=== PATIENT | male | born 1985 | race Caucasian/White ===

== ENCOUNTER 2021-01-20 00:48 | Emergency (ER) | payer BC ==
[~2021-01-20] VITALS: Ht 185.4 cm; Wt 139.7 kg
[2021-01-20] MEDS ORDERED: BUPROPION HCL150 MG PO (00:58)
[2021-01-20] MEDS ORDERED: AMPHETAMINE SAL10 MG PO (00:59)
[2021-01-20] MEDS ORDERED: DICLOFENAC SODI75 MG PO (01:00)
[2021-01-20 02:34] LABS: ABSOLUTE NEUTROPHILS 5.9 thou/uL (1.4-8.2); BASOPHILS 0.4 % (0.0-2.0); HEMATOCRIT 42.7 % (42.0-52.0); HEMOGLOBIN 14.4 gm/dL (14.0-18.0); LYMPHOCYTES 26.6 % (24.0-44.0); MCH 28.1 pg (26.0-34.0); MCHC 33.7 g/dL (28.0-37.0); MCV 83.1 fL (80.0-100.0); MONOCYTES 8.4 % (1.0-8.0); PLATELET COUNT 235 thou/uL (150-400); POLYS 62.6 % (36.0-66.0); RBC 5.14 mil/uL (4.50-6.00); RDW 14.3 % (10.5-14.5); WBC 9.4 thou/uL (4.0-11.0)
[2021-01-20 02:56] LABS: CREATININE 0.8 mg/dL (0.7-1.3); POTASSIUM 3.7 mmol/L (3.5-5.1)
[2021-01-20 03:08] LABS: ALBUMIN 3.7 g/dL (3.4-5.0); TOTAL BILIRUBIN 0.6 mg/dL (0.2-1.0); TOTAL PROTEIN 8.6 g/dL (6.4-8.2)
[2021-01-20] MEDS ORDERED: FLEXERIL PO (03:52)
[2021-01-20 04:12] VITALS: BP 168/98
--- NOTE | 2021-01-20 07:28 | EKG ---
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
== END 2021-01-20 04:16 | disposition home or self-care (01) ==
LOC: ER 00:48
PROVIDERS: Emergency Medicine
DX: M54.6 Pain in thoracic spine (principal); Z79.899 Other long term (current) drug therapy

== ENCOUNTER 2021-01-25 02:38 | Emergency (ER) | payer BC ==
[~2021-01-25] VITALS: Ht 185.4 cm; Wt 139.7 kg
[~2021-01-25 02:38] MED LIST: AMPHETAMINE SAL10 MG PO; BUPROPION HCL150 MG PO; DICLOFENAC SODI75 MG PO; FLEXERIL PO
[2021-01-25 03:09] LABS: ABSOLUTE NEUTROPHILS 5.3 thou/uL (1.4-8.2); BASOPHILS 1.1 % (0.0-2.0); EOSINOPHILS 2.5 % (0.0-3.0); HEMATOCRIT 40.9 % (42.0-52.0); LYMPHOCYTES 29.8 % (24.0-44.0); MCH 28.7 pg (26.0-34.0); MCHC 34.3 g/dL (28.0-37.0); MCV 83.6 fL (80.0-100.0); PLATELET COUNT 274 thou/uL (150-400); POLYS 57.6 % (36.0-66.0); RBC 4.89 mil/uL (4.50-6.00); RDW 14.6 % (10.5-14.5); WBC 9.2 thou/uL (4.0-11.0)
[2021-01-25 03:14] LABS: CALCIUM 8.5 mg/dL (8.5-10.1); CREATININE 0.8 mg/dL (0.7-1.3)
[2021-01-25 03:19] LABS: POTASSIUM 3.7 mmol/L (3.5-5.1)
[2021-01-25 05:49] VITALS: BP 158/95
--- NOTE | 2021-01-25 07:17 | EKG ---
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 01/25/21 0717 0247 0247 Иван Gonzalez MD, FACC /EPI
--- NOTE | 2021-01-25 15:09 | EKG ---
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
== END 2021-01-25 05:49 | disposition home or self-care (01) ==
LOC: ER 02:38
PROVIDERS: Student in an Organized Health Care Education/Training Program
DX: R07.89 Other chest pain (principal); R42 Dizziness and giddiness; R55 Syncope and collapse